=== PATIENT | male | born 1975 | race American Indian/Alaskan Native ===

== ENCOUNTER 2020-01-09 13:20 | Emergency (ER) | payer SELFPAY ==
--- NOTE | 2020-01-09 13:50 | Event Note ---
Date: 01/09/20 44-year-old obese gentleman with a history of diabetes, pulmonary embolism in 2015, likely related to travel, presenting with EMS, after he had an episode of hyperglycemia, possible sugar in the 5 or 600s, and an unprovoked episode of loss of consciousness. He is in [employer]. He denies physical pain at this time. GCS 15, clinically sober. Obtain labs, EKG, place patient on javascript front end developer, obtain detailed history and physical.
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
[2020-01-09] MEDS ORDERED: SODIUM CHLORIDE 0.9% 1000 ML 1,000 ML IV ONE (15:08)
[2020-01-09 15:15] LABS: Hematocrit 45.2 % (35.5-45.6); Hemoglobin 15.3 gm/dl (11.8-15.2); Mean Corpuscular HGB Conc 34 % (32-34); Mean Corpuscular Volume 86 fl (84-94); Platelet Count 278 K/mm3 (140-440); Red Blood Count 5.28 M/mm3 (3.65-5.03); Red Cell Distribution Width 14.2 % (13.2-15.2)
[2020-01-09 15:21] LABS: Alanine Aminotransferase 22 units/L (7-56); Albumin 3.9 g/dL (3.9-5); BUN/Creatinine Ratio 10; Blood Urea Nitrogen 7 mg/dL (9-20); Calcium 9.7 mg/dL (8.4-10.2); Hemolysis Index 9
[2020-01-09] MEDS ORDERED: INSULIN REGULAR, HUMAN 100 UNITS/1 ML IV ONE (15:22)
[2020-01-09 15:29] LABS: INR 1.05 (0.87-1.13)
[2020-01-09] MEDS ORDERED: INSULIN REGULAR, HUMAN 100 UNITS/1 ML ONE (16:12)
[2020-01-09] MEDS ORDERED: SODIUM CHLORIDE 0.9% 1000 ML 1,000 ML ONE (16:12)
[2020-01-09 16:34] VITALS: BP 118/68
== END 2020-01-09 18:19 | disposition home or self-care (01) ==
LOC: ED 13:20
DX: E11.65 Type 2 diabetes mellitus with hyperglycemia (principal); Z79.899 Other long term (current) drug therapy; Z88.0 Allergy status to penicillin; Z91.030 Bee allergy status
CPT/HCPCS: 36415; 80053; 82550; 82805; 82962; 83735; 85027; 85610; 93005; 93010; 96361; 96374; 99283; J7030; J1815